=== PATIENT | female | born 1955 | race Caucasian/White ===

== ENCOUNTER → 2016-08-26 | Outpatient (CLI) | payer BC, OTHER ==
[2016-08-26] VITALS (7 sets, daily range): BP systolic 121–1018; BP diastolic 57–76
[~2016-08-26] VITALS: Ht 165.1 cm; Wt 102.1 kg
[~2016-08-26] MED LIST: PROPANOLOL PO; PROTONIX40 M1 PO
== END | disposition home or self-care (01) ==
LOC: CAT 08:54
DX: M71.38 Other bursal cyst, other site (principal); K21.9 Gastro-esophageal reflux disease without esophagitis; Z98.890 Other specified postprocedural states; Z86.010 Personal history of colon polyps; G25.81 Restless legs syndrome; Z80.9 Family history of malignant neoplasm, unspecified